=== PATIENT | male | born 1970 | race Caucasian/White ===

== ENCOUNTER 2019-02-02 22:33 | Inpatient (IN) | payer OTHER ==
[~2019-02-02] VITALS: Ht 185.4 cm; Wt 54.1 kg
--- NOTE | 2019-02-02 22:35 | NUR ---
PT [id number] FROM HOME FOR POSSIBLE OD ON BENADRYL, BG 123 PER EMS. PT AOX0. SHALLOW BREATHING NOTED. PT NONVERBAL BUT ABLE TO TRACK. PT ON MONITOR IN BED 5. WILL CONTINUE TO MONITOR.
--- NOTE | 2019-02-02 22:38 | NUR ---
TECH AT BEDSIDE FOR EKG
--- NOTE | 2019-02-02 22:44 | NUR ---
RT AT BEDSIDE FOR ABG
--- NOTE | 2019-02-02 22:47 | NUR ---
PHLEB AT BEDSIDE FOR LAB DRAW
--- NOTE | 2019-02-02 22:53 | NUR ---
PT TAKEN TO RADIOLOGY VIA DEDRICK
[2019-02-02 22:56] LABS: ABG BASE EXCESS -0.1 mmol/L; ABG OXYGEN SATURATION 98.6 % (92.0-98.5); ABG PCO2 43.8 mmHg (35.0-45.0); ABG PO2 164.4 mmHg (75.0-100.0); COHb 0.8 % (0.5-1.5); MetHb 0.6 % (0.0-1.5); O2Hb 97.2 % (94.0-97.0); SITE, ABG Right Radial; VENT MODE, BG non-rebreather 15L
[2019-02-02 23:00] LABS: BASOPHILS % (AUTO) 0.7 % (0.0-2.0); EOSINOPHILS % (AUTO) 1.3 % (0.0-6.0); HEMATOCRIT 48 % (39-51); HEMOGLOBIN 16.4 g/dL (13.5-17.5); LYMPHOCYTES % (AUTO) 42.2 % (20.0-44.0); MEAN CORPUSCULAR HGB CONC 34 g/dl (31.0-36.0); MEAN CORPUSCULAR VOLUME 97 fL (80-96); MONOCYTES # (AUTO) 0.4 /CMM (0.1-1.30); MONOCYTES % (AUTO) 5.9 % (2.0-12.0); NEUTROPHILS # (AUTO) 3.5 /CMM (1.8-8.9); NEUTROPHILS % (AUTO) 49.9 % (43.0-81.0); PLATELET COUNT (AUTO) 325 /CMM (150-450); RED BLOOD CELL COUNT(AUTO) 4.89 MIL/uL (4.5-6.0)
[2019-02-02 23:14] LABS: CALCIUM, SERUM 8.6 mg/dL (8.5-10.1); CARBON DIOXIDE 29 mmol/L (21-32); CHLORIDE 105 mmol/L (98-107); CREATININE 0.9 mg/dL (0.6-1.3); GLUCOSE 105 mg/dL (74-106); POTASSIUM 3.1 mmol/L (3.5-5.1); SALICYLATE 1.4 mg/dL (2.8-20.0); SODIUM SERUM 144 mmol/L (136-145); UREA NITROGEN, BLOOD 8 mg/dL (7-18)
--- NOTE | 2019-02-02 23:15 | NUR ---
PT RETURNED FROM RADIOLOGY
[2019-02-02 23:20] LABS: ALANINE AMINOTRANSFERASE 25 U/L (12-78); ALKALINE PHOSPHATASE 92 U/L (46-116); ASPARTATE AMINOTRANSFERASE 21 U/L (15-37); BILIRUBIN,DIRECT 0.1 mg/dL (0.0-0.2); BILIRUBIN,TOTAL 0.2 mg/dL (0.2-1.0); SERUM AMMONIA 20 umol/L (11-32); TOTAL PROTEIN, SERUM 7.3 g/dL (6.4-8.2)
[2019-02-02 23:27] LABS: CREATINE KINASE, TOTAL 159 U/L (39-308)
--- NOTE | 2019-02-02 23:30 | NUR ---
LACTIC ACID 3.0. MD AWARE.
--- NOTE | 2019-02-02 23:49 | NUR ---
PARTNER AT BEDSIDE. AWARE.
[2019-02-03] MEDS ORDERED: PIPERACILLIN /TAZOBACTAM 3.375 G in IV D5W 50 ML IV ONE ×2
[2019-02-03] MEDS ORDERED: POTASSIUM CL. PREMIX PERIPHER. 50 ML IV SCH
[2019-02-03] MEDS ORDERED: IV NS 0.9% 1,000 ML BAG IV ONE
--- NOTE | 2019-02-03 00:02 | NUR ---
PT IS AOX3. BROWN CATH D/C BY . NO URINE SPECIMEN YET. PT PROVIDED WITH URINAL. WILL CONTINUE TO MONITOR.
[2019-02-03] MEDS ORDERED: PIPERACILLIN /TAZOBACTAM 3.375 G VIAL IV ONE (00:23)
--- NOTE | 2019-02-03 00:33 | NUR ---
BED 257 PER NURSE SUP
--- NOTE | 2019-02-03 01:02 | NUR ---
URINE COLLECTED AND SENT TO LAB
[2019-02-03 01:06] LABS: APPEARANCE,URINE Clear (CLEAR); BILIRUBIN,URINE Negative (NEGATIVE); BLOOD, URINE Negative Ery/uL (NEGATIVE); COLOR,URINE Yellow (YELLOW); KETONES,URINE Negative (NEGATIVE); LEUKOCYTE ESTERASE ,URINE Negative (NEGATIVE); NITRITE, URINE Negative (NEGATIVE); PROTEIN,URINE Negative (NEGATIVE); UGLUCOSE Negative (NEGATIVE)
[2019-02-03 01:31] LABS: BACTERIA,URINE Few /HPF (None Seen); MUCUS,URINE Few /LPF (None Seen); RBC,URINE 0-2 /HPF (0-2); SQUAMOUS EPITHELIAL CELL,UR Rare /HPF (None Seen); WBC,URINE 0-2 /HPF (0-3)
[2019-02-03] MEDS ORDERED: POTASSIUM CL. PREMIX PERIPHER. 50 ML ONE ×2 (01:37→03:25)
--- NOTE | 2019-02-03 01:45 | NUR ---
REPORT GIVEN TO HOWARD JONES FOR DALI
--- NOTE | 2019-02-03 01:48 | NUR ---
REPORT GIVEN TO HOWARD CHRISTIAN FOR DALI
--- NOTE | 2019-02-03 01:48 | NUR ---
ENDORSED 20 MEQ POTASSIUM TO INDUR, RN
[2019-02-03 03:30] VITALS: BP 145/101
[2019-02-03] MEDS ORDERED: MAGNESIUM HYDROXIDE 30 ML UDC PO PRN (03:30)
[2019-02-03] MEDS ORDERED: ONDANSETRON HCL/PF 4 MG/2 ML VIAL IVP PRN (03:30)
[2019-02-03] MEDS ORDERED: ACETAMINOPHEN 325 MG TABLET PO PRN (03:30)
--- NOTE | 2019-02-03 03:30 | NUR ---
BERNADINE/RN NOTES 48 YEARS OLD PATIENT ARRIVED TO THE UNIT WITH THE DX OF INTENTIONAL DRUG OVERDOSE. PATIENT NOTED WITH NO S/S OF ACUTE DISTRESS, RESPIRATION EVEN AND UNLABORED. NO SOB NOTED. PATIENT A/O X4, DENIES ANY PAIN AT THIS TIME. BILATERAL AC IV SITES NOTED WITH NO S/S OF INFECTION, INFILTRATION. SKIN ASSESSMENT DONE PROTOCOL. PATIENT CURRENTLY ON SUICIDE PRECAUTIONS WITH ONE TO ONE SITTER AT BED SIDE. PATIENT SAFETY MAINTAINED, BED AT THE LOWEST, LOCKED POSITION, CALL LIGHT WITHIN REACH. WILL CONTINUE TO MONITOR PATIENT PER PLAN OF CARE.
[2019-02-03 04:00] VITALS: BP 145/101
--- NOTE | 2019-02-03 07:00 | NUR ---
BERNADINE/RN EXIT NOTES PATIENT IN NO ACUTE DISTRESS, RESPIRATION EVEN AND UNLABORED. NO SOB NOTED. DENIES ANY PAIN AT THIS TIME. BILATERAL AC IV SITES NOTED WITH NO S/S OF INFECTION, INFILTRATION. PATIENT REMAINED ON SUICIDE PRECAUTIONS WITH ONE TO ONE SITTER AT BED SIDE. PATIENT ON TELE MONITORING WITH SINUS TACHY, RATE 108. PATIENT SAFETY MAINTAINED, BED AT THE LOWEST, LOCKED POSITION, CALL LIGHT WITHIN REACH. WILL ENDORSE TO AM SHIFT NURSE FOR DALI.
--- NOTE | 2019-02-03 07:33 | NUR ---
RN BERNADINE NOTES RECEIVED BEDSIDE REPORT. PATIENT A/O X4 NO SIGNS OR SYMPTOMS OF RESPIRATORY DISTRESS SATURATING WELL ON ROOM AIR. NO C/O PAIN . STATES HE IS TIRED. SINUS TACHY ON MONITOR 100'S. AMBULATORY IN ROOM. WITH SITTER FOR SUICIDAL WATCH. SKIN INTACT . IV LAC # 18 GAUGE INTACT. IV RAC DISLODGED AND REMOVED. SAFETY PRECAUTIONS IN PLACE BED IN LOW LOCKED POSITION CALL LIGHT WITHIN REACH WILL CONT TO MONITOR ACCORDINGLY
[2019-02-03 08:00] VITALS: BP 151/94
[2019-02-03] MEDS: PANTOPRAZOLE 40 MG TABLET.DR PO SCH (08:11)
--- NOTE | 2019-02-03 10:10 | NUR ---
DR MCKINLEY EVALUATED PATIENT . ORDERS PLACED CONCERN PATIENT IS HAVING ALCOHOL WITHDRAW. OBTAINED [address] LITTLE FOR ATIVAN 2 MG IVP
[2019-02-03] MEDS: FLUOXETINE HCL 20 MG CAPSULE PO SCH (10:21)
[2019-02-03] MEDS ORDERED: LORAZEPAM INJ 2 MG/ML VIAL IV ONE (10:30)
--- NOTE | 2019-02-03 10:33 | NUR ---
ATIVAN GIVEN ORDERED PER MD
[2019-02-03] MEDS ORDERED: IV NS 0.9% 1,000 ML BAG IV PRN (12:00)
[2019-02-03] MEDS: IV NS 0.9% 1,000 ML IV PRN ×2 (12:11→20:44)
--- NOTE | 2019-02-03 13:00 | NUR ---
IV REMOVED FROM LAC DISLODGED. NEW IV PLACED IN L HAND # 20 GAUGE WITH NS @ 125 ML/HR.
[2019-02-03] MEDS: LORAZEPAM INJ 2 MG/ML VIAL IV PRN ×3 (13:29→21:10)
--- NOTE | 2019-02-03 13:30 | NUR ---
PATIENT TRYING TO GET OUT OF BED. HAVING HALLUCINATIONS AND WANTING TO GO TO THE KITCHEN. PATIENT UNSTABLE TO WALK. URINAL GIVEN SITTER AT BEDSIDE WELL PARTNER. REORIENTED TO SURROUNDINGS AND CALL LIGHT . WILL CONT TO MONITOR
[2019-02-03 16:00] VITALS: BP 150/100
--- NOTE | 2019-02-03 18:38 | NUR ---
RN MS NOTES PATIENT CONTINUES TO HAVE HALLUCINATIONS AND SHAKES ATIVAN 2 MG IVP GIVEN X3 PER ORDER. FAMILY AT BEDSIDE . SITTER IN ROOM NO EXPRESSION OF SI THIS SHIFT. NO S/S OF RESPIRATORY DISTRESS SATURATING WELL ON ROOM AIR. NO C/O ACUTE PAIN. SIDE RAILS X3 UP FOR SAFETY BED IN LOW POSITION. LACTIC ACID RESULTS BACK 1.5. CONT ON IVF NS 125 ML/HR TO RIGHT HAND # 20 GAUGE. ABLE TO MAKE NEEDS KNOWN AND AND ALL MET BY STAFF.CALL LIGHT WITHIN REACH WILL ENDORSE TO NOC
--- NOTE | 2019-02-03 19:10 | NUR ---
REPORT ENDORSED TO NOC
--- NOTE | 2019-02-03 19:10 | NUR ---
RN MS OPENING NOTES RECEIVED PATIENT IN BED AWAKE ALERT AND ORIENTED X2-3 NOTED WITH EPISODE OF FORGETFULNESS, RESPIRATIONS EVEN AND UNLABORED WITH EQUAL RISE AND FALL OF CHEST, DENIES ANY PAIN OR DISCOMFORT AT THIS TIME, IV SITE TO LEFT HAND #20 G INTACT AND PATENT, IVF RUNNING ORDERED, ORIENTED TO STAFF AND CALL LIGHT AND KEPT WITHIN REACH, SAFETY PRECAUTIONS IN PLACE, LOW BED AND LOCKED, SITTER AT BEDSIDE, FALL PRECAUTIONS RENDERED, PER FAMILY PATIENT HAS NOT SLEPT REQUESTING FOR SLEEP AIDE , WILL OFFER PRN RESTORIL ORDERED. PATIENT ALSO AGREED TO TAKING SLEEP AIDE FOR TONIGHT, FLUIDS OFFERED, URINAL AT BEDSIDE, ALL NEEDS ATTENDED WILL CONTINUE TO MONITOR AND ATTEND TO NEEDS.
[2019-02-03 20:00] VITALS: BP 165/104
[2019-02-03] MEDS: TEMAZEPAM 15 MG CAPSULE PO PRN (20:33)
--- NOTE | 2019-02-03 20:33 | NUR ---
RN MS NOTES PRN RESTORIL GIVEN ORDERED AND REQUESTED TO ASSIST WITH SLEEP , WILL CONTINUE TO MONITOR .
--- NOTE | 2019-02-03 21:10 | NUR ---
RN MS NOTES PATIENT IS AGITATED , ATTEMPTING TO STRIKE AT FAMILY AND STAFF WITH SITTER AT BEDSIDE SECURITY CALLED, STATING " IM LEAVING",MADE PATIENT AWARE OF PURPOSE OF HOSPITALIZATION AND CARE RECOMMENDATIONS WITH FAMILY HELP. PATIENT HOWEVER STILL APPEARS AGITATED. MADE HOSPITALIST AWARE OF SITUATION AND MEDICATIONS AND TIMES GIVEN ,PER PHYLLIS GIVE ANOTHER DOSE OF PRN ATIVAN AT THIS TIME ORDERED. WILL CONTINUE TO MONITOR FOR EFFECTIVENESS.
--- NOTE | 2019-02-03 21:10 | NUR ---
RN MS NOTES UNABLE TO RUN IVF AT THIS TIME PATIENT IS UP OUT OF BED AGITATED. STATING " IM LEAVING" WILL RECONNECT IVF WHEN PATIENT AGREES AND REMAINS CALM.
--- NOTE | 2019-02-03 21:55 | NUR ---
RN NOTES WAS AGITATED ALMOST HIT FAMILY MEMBER AND STAFF;CALLED SECURITY TO CALM HIM DOWN; WAS GIVEN ATIVAN ORDER PER ORDER. PER DR. MCKINLEY NEEDS MEDICAL CLEARANCE THEN CALL CRISIS TEAM . 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 PER PHYLLIS HE WAS CLEARED SINCE THIS MORNING; TO GO AHEAD AND CALL CRISIS TEAM. MARIBEL, PRIMARY RN MADE AWARE. LIBRARY TECHNOLOGY INSTRUCTOR WILL CALL CRISIS TEAM. FAMILY AT BEDSIDE; AWARE OF ORDERS Addendum: 02/03/19 at 2202 by TEENA LOVE RN 2202 PER SOFY THORNE WILL COME SEE THE PATIENT
--- NOTE | 2019-02-03 22:07 | NUR ---
RN MS NOTES RECEIVED CALL FROM CHEYENNE FROM [facility] WILL ATTEMPT TO CALL CRISIS TEAM COMMUNICATION SPEC SOFY [phone]. WILL AWAIT CALL BACK.
--- NOTE | 2019-02-03 22:30 | NUR ---
RN MS NOTES RECEIVED CALL BACK FROM SOFY LEHMAN -CRISIS TEAM MADE AWARE OF AFTER MEDICAL CLEARANCE NEED CRISIS TEAM EVAL FOR 5150 EVAL PER NOTES. PER SOFY REQUEST TO FIND OUT IF PATIENT CAN BE DISCHARGED AFTER EVAL IF NO HOLD NEEDED. INSTALLMENT DEALER HOSPITALIST MADE AWARE, WILL NOT DISCHARGE. SOFY MADE AWARE.
--- NOTE | 2019-02-03 23:30 | NUR ---
RN MS NOTES SEEN BY CRISIS TEAM SOFY LEHMAN, AWAITING FOR FURTHER ORDERS.
--- NOTE | 2019-02-04 00:10 | NUR ---
RN MS NOTES PATIENT IS NOW ON A 5150 HOLD BEGINNING 02/03/192349 ,ENDING 02/06/192349, OFFICIAL EVALUATION PAPERWORK PLACED IN FRONT OF CHART. PATIENT ALSO REFUSED TO HAVE IVF RUNNING DESPITE EXPLANATIONS OF RISK AND BENEFITS. FAMILY THU YORKKS AWARE AND UPDATED WITH PLAN OF CARE.
--- NOTE | 2019-02-04 00:30 | NUR ---
RN MS NOTES AT THIS TIME PATIENT IN BED OFFERED AND EXPLAINED IVF ADMINISTRATIONS PATIENT REFUSED AT THIS TIME, STATING " NO ". WILL CONTINUE TO MONITOR.
--- NOTE | 2019-02-04 00:47 | NUR ---
RN NOTES NOTIFIED Lelia BRUNNER NP THAT CRISIS TEAM CAME ALREADY AND PUT PATIENT ON 5150 HOLD. WITH ORDER FOR ZYPREXIA X1 AND WILL KEEP MED SURG LEVEL OF CARE. PRIMARY RN, MARIBEL AND HEARING IMPAIRED ITINERANT TEACHER, MATI NOTIFIED
[2019-02-04] MEDS ORDERED: OLANZAPINE 10 MG VIAL IM ONE ×2 (01:00→01:03)
--- NOTE | 2019-02-04 01:48 | NUR ---
RN MS NOTES PATIENT STILL UNABLE TO REST STILL ATTEMPTING TO GET OUT OF BED. RESTLESSNESS STILL PRESENT, AGITATIONS PRESENT, WILL GIVE ZYPREXA ORDERED ONCE. EXPLAINED TO PATIENT AGREED, MEDICATION ZYPREXA ORDERED GIVEN WILL CONTINUE TO MONITOR.
[2019-02-04 01:50] VITALS: BP 158/110
[2019-02-04 04:00] VITALS: BP 153/105
--- NOTE | 2019-02-04 04:00 | NUR ---
RN MS NOTES AT THIS TIME, PATIENT REMAINS IN BED NOTED ZYPREXA EFFECTIVE, PATIENT APPEARS CALM, AT THIS TIME IVF IS RUNNING.
--- NOTE | 2019-02-04 06:34 | NUR ---
RN MS CLOSING NOTES PATIENT IN BED SLEEPING BUT EASILY AROUSABLE, ALERT AND ORIENTED X2-3 NOTED WITH EPISODE OF FORGETFULNESS, HALLUCINATIONS AND TALKING TO SELF THROUGHOUT SHIFT, RESPIRATIONS EVEN AND UNLABORED WITH EQUAL RISE AND FALL OF CHEST, PLACED ON 02 2 L VIA NC FOR COMFORT AND AFTER ADMINISTRATION OF ZYPREXA, RESP 18 SPO2 94-96% , NO DISTRESS PRESENT, DENIES ANY PAIN OR DISCOMFORT AT THIS TIME, IV SITE TO LEFT FA #20 G INTACT AND PATENT, IVF RUNNING ORDERED, PATIENT REMOVED LEFT HAND IV SITE,CALL LIGHT KEPT WITHIN REACH, SAFETY PRECAUTIONS IN PLACE, LOW BED AND LOCKED, SITTER AT BEDSIDE, FALL PRECAUTIONS RENDERED, FLUIDS OFFERED, SNACKS OFFERED, URINAL AT BEDSIDE, TOILET USED THROUGHOUT SHIFT, ALL NEEDS ATTENDED WILL CONTINUE TO MONITOR AND ENDORSE TO NEXT SHIFT. AT THIS TIME REMAINS STABLE AND COMFORTABLE, VS WNL, ZYPREXA EFFECTIVE.
[2019-02-04 07:24] LABS: BASOPHILS % (AUTO) 0.6 % (0.0-2.0); EOSINOPHILS % (AUTO) 2.2 % (0.0-6.0); HEMATOCRIT 43 % (39-51); HEMOGLOBIN 14.9 g/dL (13.5-17.5); LYMPHOCYTES # (AUTO) 1.6 /CMM (0.8-4.8); LYMPHOCYTES % (AUTO) 24.9 % (20.0-44.0); MEAN CORPUSCULAR HGB CONC 34 g/dl (31.0-36.0); MEAN CORPUSCULAR VOLUME 99 fL (80-96); MONOCYTES # (AUTO) 0.3 /CMM (0.1-1.30); MONOCYTES % (AUTO) 5.1 % (2.0-12.0); NEUTROPHILS # (AUTO) 4.4 /CMM (1.8-8.9); NEUTROPHILS % (AUTO) 67.2 % (43.0-81.0); PLATELET COUNT (AUTO) 220 /CMM (150-450); RED BLOOD CELL COUNT(AUTO) 4.39 MIL/uL (4.5-6.0); WHITE BLOOD COUNT (AUTO) 6.6 K/uL (4.3-11.0)
[2019-02-04 07:42] LABS: CALCIUM, SERUM 8.6 mg/dL (8.5-10.1); CREATININE 0.9 mg/dL (0.6-1.3); MAGNESIUM 1.5 mg/dL (1.8-2.4); PHOSPHORUS 3.8 mg/dL (2.5-4.9); POTASSIUM 3.4 mmol/L (3.5-5.1)
[2019-02-04] MEDS: Magnesium 1GM/D5W 100ML PREMIX 100 ML IV SCH ×3 (09:30→14:52)
[2019-02-04] MEDS: FLUOXETINE HCL 20 MG CAPSULE PO SCH (09:40)
[2019-02-04] MEDS: PANTOPRAZOLE 40 MG TABLET.DR PO SCH (09:41)
[2019-02-04] MEDS ORDERED: POTASSIUM CHLORIDE 20 MEQ TAB.PRT.SR PO SCH (10:30)
[2019-02-04 12:00] VITALS: BP 153/105
--- NOTE | 2019-02-04 12:00 | NUR ---
PATIENT APPEARS TO BE IN STABLE CONDITION, NO WITHDRAWALS, NO PAIN, PATIENT IS SLEEPING A LOT THROUGHOUT THE DAY, DAILY MEDICATION WAS GIVEN
--- NOTE | 2019-02-04 14:25 | NUR ---
SPOKE WITH KEVEN LIAO AND MIKE WAS SOME CONFUSION AND MISCOMMUNICATION. THE PATIENT ISN'T ON A 72 HOUR HOLD. PATIENT MAY BE DISCHARGE SOON HE IS MEDICALLY CLEARED. PATIENT IS CURRENTLY RECEIVING MG AND POTASSIUM TO INCREASE LOW LEVELS.
[2019-02-04] MEDS ORDERED: Magnesium 1GM/D5W 100ML PREMIX 100 ML IV SCH (15:00)
--- NOTE | 2019-02-04 17:28 | NUR ---
RECEIVED REPORT FROM NIGHT NURSE PATIENT IN BED WITH NO APPARENT DISTRESS.
--- NOTE | 2019-02-04 19:30 | NUR ---
RN NOTES RECEIVED PT. AWAKE ON BED, A/OX4, AMBULATORY WITH STANDBY ASSIST, FAMILY AT BEDSIDE, DENIES PAIN, NO SOB, CALL LIGHT WITHIN REACH, [id number], CONTINUE TO MONITOR
--- NOTE | 2019-02-04 19:33 | NUR ---
REPORT GIVEN TO NAT VIA SBAR ALL QUESTIONS ANSWERED
[2019-02-04] MEDS: IV NS 0.9% 1,000 ML IV PRN (20:18)
[2019-02-04 20:45] VITALS: BP 157/110
--- NOTE | 2019-02-04 20:50 | NUR ---
RN NOTES PT. BP IS 157/110, PT IS CALM AND NOT AGITATED, INFORMED MD ABOUT PT. BLOOD PRESSURE, NO ORDER WAS GIVEN
[2019-02-04] MEDS: TEMAZEPAM 15 MG CAPSULE PO PRN (22:02)
--- NOTE | 2019-02-04 22:04 | NUR ---
RN NOTES PT. ASKED FOR SLEEPOING PILL- RESTORIL 15MG PO GIVEN ORDERED, V/S STABLE
[2019-02-05 04:00] VITALS: BP 145/109
[2019-02-05] MEDS: IV NS 0.9% 1,000 ML IV PRN (06:04)
[2019-02-05 07:23] LABS: BASOPHILS % (AUTO) 0.5 % (0.0-2.0); EOSINOPHILS % (AUTO) 3.5 % (0.0-6.0); HEMATOCRIT 43 % (39-51); HEMOGLOBIN 14.6 g/dL (13.5-17.5); LYMPHOCYTES # (AUTO) 1.5 /CMM (0.8-4.8); LYMPHOCYTES % (AUTO) 24.1 % (20.0-44.0); MEAN CORPUSCULAR HGB CONC 34 g/dl (31.0-36.0); MEAN CORPUSCULAR VOLUME 98 fL (80-96); MONOCYTES # (AUTO) 0.3 /CMM (0.1-1.30); MONOCYTES % (AUTO) 5.6 % (2.0-12.0); NEUTROPHILS % (AUTO) 66.3 % (43.0-81.0); PLATELET COUNT (AUTO) 200 /CMM (150-450); RED BLOOD CELL COUNT(AUTO) 4.36 MIL/uL (4.5-6.0); WHITE BLOOD COUNT (AUTO) 6.1 K/uL (4.3-11.0)
[2019-02-05 07:30] LABS: CALCIUM, SERUM 8.3 mg/dL (8.5-10.1); CREATININE 0.9 mg/dL (0.6-1.3); POTASSIUM 3.5 mmol/L (3.5-5.1)
--- NOTE | 2019-02-05 07:30 | NUR ---
INITIAL PATIENT IS NOW OFF A 5150 HOLD PT IS AND IS MEDICALLY CLEARED ALSO. PT PLEASANT ORIENTED X 4 UP AND BACK TO BATH ROOM GIVEN BREAKFAST TRAY ,CLEARED FOR PSYCH BY, OFFICIAL EVALUATION PAPERWORK PLACED IN FRONT OF CHART. PATIENT ALSO REFUSED TO HAVE IVF RUNNING DESPITE EXPLANATIONS OF RISK AND BENEFITS. FAMILY THU YORKKS AWARE AND UPDATED WITH PLAN OF CARE.
[2019-02-05] MEDS: PANTOPRAZOLE 40 MG TABLET.DR PO SCH (07:38)
[2019-02-05] MEDS: FLUOXETINE HCL 20 MG CAPSULE PO SCH (08:40)
[2019-02-05] MEDS ORDERED: FLUO-120 PO (10:10)
--- NOTE | 2019-02-05 10:52 | NUR ---
DISCHARGE PT DISCHARGED HOME WITH FAMILY GIVEN ACI AND PRESCRIPTION. PT TO FOLLOW UP WITH PCP IN FEW DAYS. PT DENIES SI OR HI AT THIS TIME AND IS ALERT WITH ORIENTED X 4 WELL DRESSED WALKING WITH STEADY GAIT
== END 2019-02-05 10:45 | disposition home or self-care (01) | DRG 896 ==
LOC: ER 22:36 → ICU 02-03 01:12 → TELE-TD 02-03 02:41 → MEDSG1 02-03 09:43 → TELE1 02-04 08:11 → MEDSG1 02-04 08:14
PROVIDERS: ADMIT Family Medicine; ATTEND Family Medicine
DX: F10.239 Alcohol dependence with withdrawal, unspecified (principal); J96.00 Acute respiratory failure, unspecified whether with hypoxia or hypercapnia; G92 Toxic encephalopathy; E87.2 Acidosis; R45.851 Suicidal ideations; F33.2 Major depressive disorder, recurrent severe without psychotic features; F10.229 Alcohol dependence with intoxication, unspecified; E87.6 Hypokalemia; Y90.7 Blood alcohol level of 200-239 mg/100 ml; E83.42 Hypomagnesemia; Z81.8 Family history of other mental and behavioral disorders; T45.0X5A Adverse effect of antiallergic and antiemetic drugs, initial encounter; Y92.009 Unspecified place in unspecified non-institutional (private) residence as the place of occurrence of the external cause; F19.90 Other psychoactive substance use, unspecified, uncomplicated
CPT/HCPCS: 36415; 36600; 70450-TC; 71045-TC; 72125-TC; 80048-TC; 80076-TC; 80305; 81000-TC; 82140-TC; 82550-TC; 82803-TC; 83605-TC; 83735-TC; 84100-TC; 84484-TC; 85025-TC; 85730-TC; 87040-TC; 87081-TC; 87086-TC; G0378; G0480; J2060; J2543; J3475; J3480; J3490; J7030; J7050; J7060